=== PATIENT | male | born 1930 | race Caucasian/White ===

== ENCOUNTER 2017-10-09 12:00 | Inpatient (IN) | payer MEDICARE ==
[~2017-10-09] VITALS: Ht 182.9 cm; Wt 56.2 kg
[~2017-10-09 12:00] MED LIST: ACET250T3 PO; ACET325T51 PO; ALBU0.63 IH; AMLO10TA2 PO; BRIM5DRO OP; CICL34.62 TP; DORZ10DR9 OD; GLIP5TAB11 PO; LACT10SO9 PO; LATA2.5D2 OP; MECL12.585 PO; NA P133E35 RC; ZINC220C6 PO
[2017-10-09 12:43] LABS: POTASSIUM 3.6 mmol/L (3.5-5.1)
[2017-10-09 12:44] LABS: INR 1.01 (0.85-1.15); PARTIAL THROMBOPLASTIN TIME 28.1 SEC (26.3-35.5); PROTHROMBIN TIME 10.6 SEC (9.6-11.6)
[2017-10-09 13:01] LABS: ALBUMIN 2.9 g/dL (3.5-5.0); BILIRUBIN,TOTAL 0.3 mg/dL (0.2-1.0); CREATINE KINASE MB 0.5 ng/mL (0.5-3.6); TOTAL PROTEIN, SERUM 6.9 g/dL (6.0-8.3)
[2017-10-09 13:40] LABS: EOSINOPHILS % (AUTO) 1.9 % (0.0-8.0); HEMATOCRIT 31.9 % (42-54); LYMPHOCYTES % (AUTO) 74.8 % (21.0-51.0); MEAN CORPUSCULAR HEMOGLOBIN 25.2 pg (27.0-33.0); MEAN CORPUSCULAR VOLUME 76.4 fL (79-99); MONOCYTES % (AUTO) 2.3 % (3.0-13.0); NUCLEATED RED BLOOD CELLS 0.1 % (0.0-0.19); PLATELET COUNT (AUTO) 288 K/uL (130-400); RED BLOOD CELL COUNT(AUTO) 4.17 MIL/uL (4.50-6.20); RED CELL DISTRIBUTION WIDTH 16.8 % (11.0-15.5); WHITE BLOOD COUNT (AUTO) 26.8 K/uL (4.8-10.8)
[2017-10-09 13:46] LABS: APPEARANCE,URINE Clear (CLEAR); BILIRUBIN,URINE Negative (NEGATIVE); COLOR,URINE Yellow (YELLOW); GLUCOSE, URINE (UA) Negative (NEGATIVE); KETONES,URINE Negative (NEGATIVE); LEUKOCYTE ESTERASE ,URINE Negative (NEGATIVE); NITRATE,URINE Negative (NEGATIVE); OCCULT BLOOD,URINE Negative (NEGATIVE); PROTEIN,URINE POS 1+ (NEGATIVE); UROBILINOGEN,URINE 0.2 mg/dL (0.2-1.0)
[2017-10-09 13:58] LABS: BACTERIA,URINE Rare /HPF (None Seen); SQUAMOUS EPITHELIAL CELL,UR Rare /HPF (0-2); WBC,URINE 0-1 /HPF (0-1)
[2017-10-09 14:06] LABS: BLASTS, MANUAL % 1 (0-0); EOSINOPHILS % (MANUAL) 3 % (1-6); LYMPHOCYTES % (MANUAL) 62 % (22-44); MAN.DIFF COMMENT-IMPRESSION MANUAL DIFFERENTIAL; MONOCYTES % (MANUAL) 7 % (2-9); REACTIVE LYMPHOCYTES 13 % (0-0); SEGMENTED NEUTROPHILS % 14 % (40-70)
[2017-10-09 14:07] LABS: PLATELET MORPHOLOGY COMMENT ADEQUATE
[2017-10-09] MEDS ORDERED: CEFTRIAXONE SODIUM 1 GM ONE (15:11)
[2017-10-09] MEDS ORDERED: SODIUM CHLORIDE 0.9% 1000ML 1,000 ML IV ONE (17:14)
[2017-10-09] MEDS ORDERED: MORPHINE SULFATE 4 MG/1ML SYG IVP PRN (19:45)
[2017-10-09] MEDS ORDERED: ONDANSETRON HCL 4 MG/2 ML VIAL IVP PRN (19:45)
[2017-10-09] MEDS ORDERED: GUAIFENESIN-DM 200/20 MG 10 ML PO PRN (19:45)
[2017-10-09] MEDS ORDERED: DiphenhydrAMINE HCL 50 MG/ML VIAL IVP PRN (19:45)
[2017-10-09] MEDS: SODIUM CHLORIDE 0.9% 1000ML 1,000 ML IV SCH (19:45)
[2017-10-09] MEDS ORDERED: POTASSIUM CHLORIDE 10% ELIXIR 20 MEQ/15 ML UDCUP PO PRN (19:45)
[2017-10-09] MEDS ORDERED: MAG HYDROX/AL HYDROX/SIMETH ES 30 ML SUSP UDCUP PO PRN (19:45)
[2017-10-09] MEDS ORDERED: ZOLPIDEM TARTRATE 5 MG TAB PO PRN (19:45)
[2017-10-09] MEDS ORDERED: LACTULOSE 20 GM/30 ML UDCUP PO PRN (19:45)
[2017-10-09] MEDS ORDERED: NITROGLYCERIN 0.4 MG SL TAB SL PRN (19:45)
[2017-10-09] MEDS ORDERED: ACETAMINOPHEN 325 MG TAB PO PRN ×2 (19:45)
[2017-10-09] MEDS ORDERED: DIPHENHYDRAMINE HCL 25 MG CAPSULE PO PRN (19:45)
[2017-10-09] MEDS: LEVOFLOXACIN 500 MG/D5W 100 ML 100 ML IV SCH (20:00)
[2017-10-09] MEDS ORDERED: LEVOFLOXACIN 500 MG/D5W 100 ML 100 ML ONE (20:11)
[2017-10-09 21:00] VITALS: BP 128/88
[2017-10-09] MEDS: IPRATROPIUM/ALBUTEROL SULFATE 3 ML SOLUTION IH SCH (21:32)
[2017-10-09] MEDS: CLONIDINE HCL 0.1 MG TABLET PO PRN (23:38)
[2017-10-09] MEDS: ZOSYN 3.375GM+NS 50ML 50 ML IV SCH (23:59)
[2017-10-10 00:09] VITALS: BP 168/103
[2017-10-10] MEDS: IPRATROPIUM/ALBUTEROL SULFATE 3 ML SOLUTION IH SCH ×6 (02:46→21:25)
[2017-10-10 04:05] VITALS: BP 167/85
[2017-10-10 05:45] LABS: HEMATOCRIT 33.9 % (42-54); MEAN CORPUSCULAR HEMOGLOBIN 25.2 pg (27.0-33.0); MEAN CORPUSCULAR HGB CONC 32.9 g/dL (32.0-36.0); MEAN CORPUSCULAR VOLUME 76.7 fL (79-99); PLATELET COUNT (AUTO) 287 K/uL (130-400); RED BLOOD CELL COUNT(AUTO) 4.41 MIL/uL (4.50-6.20); RED CELL DISTRIBUTION WIDTH 16.5 % (11.0-15.5); WHITE BLOOD COUNT (AUTO) 23.7 K/uL (4.8-10.8)
[2017-10-10 06:03] LABS: POTASSIUM 3.5 mmol/L (3.5-5.1); THYROID STIMULATING HORMONE 5.41 uIU/mL (0.36-3.74)
[2017-10-10] MEDS: ZOSYN 3.375GM+NS 50ML 50 ML IV SCH ×3 (06:16→22:14)
[2017-10-10] MEDS: SODIUM CHLORIDE 0.9% 1000ML 1,000 ML IV SCH (06:19)
[2017-10-10 07:00] VITALS: BP 188/95
[2017-10-10] MEDS ORDERED: DOCUSATE SODIUM 100 MG CAP PO PRN (09:00)
[2017-10-10] MEDS ORDERED: DONE10TA8 PO (09:02)
[2017-10-10] MEDS ORDERED: TRAZ-185 PO (09:02)
[2017-10-10] MEDS ORDERED: CALC-866 PO (09:02)
[2017-10-10] MEDS ORDERED: MIRT7.5T11 PO (09:02)
[2017-10-10 11:41] VITALS: BP 141/87
[2017-10-10 15:00] VITALS: BP 147/78
[2017-10-10 20:20] VITALS: BP 163/93
[2017-10-10] MEDS: LEVOFLOXACIN 500 MG/D5W 100 ML 100 ML IV SCH (21:00)
[2017-10-11 00:29] VITALS: BP 150/83
[2017-10-11] MEDS: IPRATROPIUM/ALBUTEROL SULFATE 3 ML SOLUTION IH SCH ×6 (02:14→22:00)
[2017-10-11 04:23] VITALS: BP 163/94
[2017-10-11 05:40] LABS: HEMATOCRIT 35.7 % (42-54); MEAN CORPUSCULAR HEMOGLOBIN 24.6 pg (27.0-33.0); MEAN CORPUSCULAR HGB CONC 32.1 g/dL (32.0-36.0); MEAN CORPUSCULAR VOLUME 76.7 fL (79-99); PLATELET COUNT (AUTO) 340 K/uL (130-400); RED BLOOD CELL COUNT(AUTO) 4.66 MIL/uL (4.50-6.20); RED CELL DISTRIBUTION WIDTH 17.2 % (11.0-15.5); WHITE BLOOD COUNT (AUTO) 26.7 K/uL (4.8-10.8)
[2017-10-11] MEDS: ZOSYN 3.375GM+NS 50ML 50 ML IV SCH ×3 (05:48→23:19)
[2017-10-11 05:50] LABS: CREATININE 1.2 mg/dL (0.5-1.5); POTASSIUM 3.8 mmol/L (3.5-5.1)
[2017-10-11] MEDS: SODIUM CHLORIDE 0.9% 1000ML 1,000 ML IV SCH (05:54)
[2017-10-11 08:00] VITALS: BP 162/115
[2017-10-11 12:00] VITALS: BP 150/97
[2017-10-11 16:00] VITALS: BP 128/109
[2017-10-11] MEDS ORDERED: LABETALOL 20 MG/4 ML DISP.SYRIN IV PRN (17:15)
[2017-10-11] MEDS ORDERED: ISOVUE-370 50ML VIAL IV ONE (17:35)
[2017-10-11] MEDS ORDERED: LORAZEPAM 2 MG/ML 1 ML VIAL IVP PRN (19:30)
[2017-10-11] MEDS: LABETALOL HCL 5 MG/ML 20ML VIAL IV PRN (20:24)
[2017-10-11 20:28] VITALS: BP 159/91
[2017-10-11] MEDS: LEVOFLOXACIN 500 MG/D5W 100 ML 100 ML IV SCH (20:55)
[2017-10-12 00:09] VITALS: BP 149/100
[2017-10-12] MEDS: LABETALOL HCL 5 MG/ML 20ML VIAL IV PRN ×2 (00:41→06:07)
[2017-10-12 04:25] VITALS: BP 199/88
[2017-10-12 05:25] LABS: CREATININE 1.2 mg/dL (0.5-1.5); POTASSIUM 3.8 mmol/L (3.5-5.1)
[2017-10-12 05:34] LABS: HEMATOCRIT 33.6 % (42-54); MEAN CORPUSCULAR HEMOGLOBIN 25.4 pg (27.0-33.0); MEAN CORPUSCULAR HGB CONC 32.8 g/dL (32.0-36.0); MEAN CORPUSCULAR VOLUME 77.3 fL (79-99); PLATELET COUNT (AUTO) 313 K/uL (130-400); RED BLOOD CELL COUNT(AUTO) 4.35 MIL/uL (4.50-6.20); RED CELL DISTRIBUTION WIDTH 17.6 % (11.0-15.5); WHITE BLOOD COUNT (AUTO) 22.8 K/uL (4.8-10.8)
[2017-10-12] MEDS: IPRATROPIUM/ALBUTEROL SULFATE 3 ML SOLUTION IH SCH ×2 (06:00→06:12)
[2017-10-12] MEDS: ZOSYN 3.375GM+NS 50ML 50 ML IV SCH ×3 (06:02→20:21)
[2017-10-12] MEDS: LEVOTHYROXINE 50 MCG TABLET PO SCH ×2 (06:03→06:30)
[2017-10-12] MEDS: SODIUM CHLORIDE 0.9% 1000ML 1,000 ML IV SCH (07:45)
[2017-10-12 08:00] VITALS: BP 179/90
[2017-10-12] MEDS ORDERED: MECLIZINE HCL 12.5 MG TABLET PO PRN (08:15)
[2017-10-12] MEDS ORDERED: ACETAMINOPHEN 325 MG TAB PO PRN (08:15)
[2017-10-12] MEDS ORDERED: ALBUTEROL SULFATE 0.042% 1.25 MG/3 ML INH IH PRN (08:15)
[2017-10-12] MEDS ORDERED: LACTULOSE 20 GM/30 ML UDCUP PO PRN (08:15)
[2017-10-12] MEDS: CHOLECALCIFEROL 5000 UNIT PO SCH (09:00)
[2017-10-12] MEDS: TIMOLOL OP SCH ×3 (09:00→20:36)
[2017-10-12] MEDS ORDERED: DORZOLAMIDE HCL 2% 10ML DROPS OD SCH (09:00)
[2017-10-12] MEDS: BRIMONIDINE TARTRATE OP SCH ×3 (09:00→20:36)
[2017-10-12] MEDS: METOPROLOL TARTRATE 50 MG TAB PO SCH ×2 (10:00→20:25)
[2017-10-12] MEDS: HYDRALAZINE HCL 25 MG TABLET PO SCH ×2 (10:07→20:25)
[2017-10-12] MEDS: AMLODIPINE BESYLATE 5 MG TAB PO SCH (10:08)
[2017-10-12] MEDS: ENOXAPARIN SODIUM 40 MG/0.4 ML SYRINGE SQ SCH (10:08)
[2017-10-12 11:00] VITALS: BP 181/74
[2017-10-12] MEDS: DORZOLAMIDE HCL 2% 10ML DROPS OD SCH ×2 (14:00→20:36)
[2017-10-12 17:44] VITALS: BP 170/101
[2017-10-12] MEDS: LEVOFLOXACIN 500 MG/D5W 100 ML 100 ML IV SCH (20:21)
[2017-10-12] MEDS: TRAZODONE HCL 50 MG TAB PO SCH (20:25)
[2017-10-12] MEDS: DONEPEZIL HCL 5 MG TAB PO SCH (20:25)
[2017-10-12] MEDS: MIRTAZAPINE 15 MG TABLET PO SCH (20:25)
[2017-10-12] MEDS: LATANOPROST 2.5 ML DROPS OP SCH (20:36)
[2017-10-12 20:53] VITALS: BP 156/68
[2017-10-13] VITALS (7 sets, daily range): BP systolic 140–194; BP diastolic 72–104
[2017-10-13 04:33] LABS: HEMATOCRIT 33.3 % (42-54); MEAN CORPUSCULAR HEMOGLOBIN 24.6 pg (27.0-33.0); MEAN CORPUSCULAR VOLUME 76.8 fL (79-99); NUCLEATED RED BLOOD CELLS 0.1 % (0.0-0.19); PLATELET COUNT (AUTO) 295 K/uL (130-400); RED BLOOD CELL COUNT(AUTO) 4.33 MIL/uL (4.50-6.20); RED CELL DISTRIBUTION WIDTH 17.4 % (11.0-15.5); WHITE BLOOD COUNT (AUTO) 24.4 K/uL (4.8-10.8)
[2017-10-13 04:36] LABS: POTASSIUM 2.9 mmol/L (3.5-5.1)
[2017-10-13] MEDS: CLONIDINE HCL 0.1 MG TABLET PO PRN (04:39)
[2017-10-13] MEDS: POTASSIUM CHLORIDE 20MEQ/100ML 100 ML IV PRN (04:39)
[2017-10-13] MEDS: ZOSYN 3.375GM+NS 50ML 50 ML IV SCH ×3 (04:40→20:23)
[2017-10-13] MEDS: SODIUM CHLORIDE 0.9% 1000ML 1,000 ML IV SCH (04:40)
[2017-10-13] MEDS: LEVOTHYROXINE 50 MCG TABLET PO SCH (04:40)
[2017-10-13 04:54] LABS: LYMPHOCYTES % (MANUAL) 65 % (22-44); MAN.DIFF COMMENT-IMPRESSION MANUAL DIFFERENTIAL; MONOCYTES % (MANUAL) 6 % (2-9); PLATELET MORPHOLOGY COMMENT ADEQUATE; SEGMENTED NEUTROPHILS % 29 % (40-70)
[2017-10-13] MEDS: IPRATROPIUM/ALBUTEROL SULFATE 3 ML SOLUTION IH SCH (06:00)
[2017-10-13] MEDS: HYDRALAZINE HCL 25 MG TABLET PO SCH ×2 (08:15→10:24)
[2017-10-13] MEDS: TIMOLOL OP SCH ×3 (09:00→19:58)
[2017-10-13] MEDS: BRIMONIDINE TARTRATE OP SCH ×3 (09:00→19:58)
[2017-10-13] MEDS: CHOLECALCIFEROL 5000 UNIT PO SCH (09:00)
[2017-10-13] MEDS: AMLODIPINE BESYLATE 5 MG TAB PO SCH (10:24)
[2017-10-13] MEDS: METOPROLOL TARTRATE 50 MG TAB PO SCH ×2 (10:25→19:51)
[2017-10-13] MEDS: POTASSIUM CHLORIDE 20 MEQ ERTAB PO PRN ×4 (10:25→17:54)
[2017-10-13] MEDS: SERTRALINE HCL 50 MG TABLET PO SCH (10:26)
[2017-10-13] MEDS: ENOXAPARIN SODIUM 40 MG/0.4 ML SYRINGE SQ SCH (10:28)
[2017-10-13] MEDS: DORZOLAMIDE HCL 2% 10ML DROPS OD SCH ×3 (10:29→19:57)
[2017-10-13] MEDS ORDERED: LABETALOL HCL 5 MG/ML 20ML VIAL IV PRN (10:40)
[2017-10-13] MEDS ORDERED: METOPROLOL TARTRATE 1 MG/ML 5ML VIAL IV PRN (13:15)
[2017-10-13] MEDS: DONEPEZIL HCL 5 MG TAB PO SCH (19:51)
[2017-10-13] MEDS: LEVOFLOXACIN 500 MG/D5W 100 ML 100 ML IV SCH (19:52)
[2017-10-13] MEDS: TRAZODONE HCL 50 MG TAB PO SCH (19:52)
[2017-10-13] MEDS: MIRTAZAPINE 15 MG TABLET PO SCH (19:52)
[2017-10-13] MEDS: LATANOPROST 2.5 ML DROPS OP SCH (21:00)
[2017-10-14] VITALS (7 sets, daily range): BP systolic 132–170; BP diastolic 63–95
[2017-10-14] MEDS: HYDRALAZINE HCL 25 MG TABLET PO SCH ×4 (00:37→21:12)
[2017-10-14] MEDS: SODIUM CHLORIDE 0.9% 1000ML 1,000 ML IV SCH ×2 (00:37→22:47)
[2017-10-14 05:28] LABS: CREATININE 1.1 mg/dL (0.5-1.5); POTASSIUM 3.5 mmol/L (3.5-5.1)
[2017-10-14] MEDS: ZOSYN 3.375GM+NS 50ML 50 ML IV SCH (06:00)
[2017-10-14] MEDS: LEVOTHYROXINE 50 MCG TABLET PO SCH (06:00)
[2017-10-14] MEDS: CHOLECALCIFEROL 5000 UNIT PO SCH (09:00)
[2017-10-14] MEDS: TIMOLOL OP SCH ×3 (09:00→21:00)
[2017-10-14] MEDS: BRIMONIDINE TARTRATE OP SCH ×3 (09:00→21:00)
[2017-10-14] MEDS: ENOXAPARIN SODIUM 40 MG/0.4 ML SYRINGE SQ SCH (09:43)
[2017-10-14] MEDS: SERTRALINE HCL 50 MG TABLET PO SCH (09:43)
[2017-10-14] MEDS: AMLODIPINE BESYLATE 5 MG TAB PO SCH (09:44)
[2017-10-14] MEDS: METOPROLOL TARTRATE 50 MG TAB PO SCH ×2 (09:44→21:14)
[2017-10-14] MEDS: DORZOLAMIDE HCL 2% 10ML DROPS OD SCH ×3 (09:45→22:52)
[2017-10-14] MEDS: LATANOPROST 2.5 ML DROPS OP SCH (21:00)
[2017-10-14] MEDS: DONEPEZIL HCL 5 MG TAB PO SCH (21:12)
[2017-10-14] MEDS: MIRTAZAPINE 15 MG TABLET PO SCH (21:12)
[2017-10-14] MEDS: TRAZODONE HCL 50 MG TAB PO SCH (21:12)
[2017-10-15] VITALS (7 sets, daily range): BP systolic 120–165; BP diastolic 60–88
[2017-10-15] MEDS: LEVOTHYROXINE 50 MCG TABLET PO SCH (06:23)
[2017-10-15] MEDS: METOPROLOL TARTRATE 50 MG TAB PO SCH ×2 (08:28→21:00)
[2017-10-15] MEDS: SERTRALINE HCL 50 MG TABLET PO SCH (08:28)
[2017-10-15] MEDS: HYDRALAZINE HCL 25 MG TABLET PO SCH ×3 (08:36→22:33)
[2017-10-15] MEDS: AMLODIPINE BESYLATE 5 MG TAB PO SCH (08:37)
[2017-10-15] MEDS: ENOXAPARIN SODIUM 40 MG/0.4 ML SYRINGE SQ SCH (08:44)
[2017-10-15] MEDS: CHOLECALCIFEROL 5000 UNIT PO SCH (08:56)
[2017-10-15] MEDS: BRIMONIDINE TARTRATE OP SCH ×3 (08:56→21:00)
[2017-10-15] MEDS: TIMOLOL OP SCH ×3 (08:56→21:00)
[2017-10-15] MEDS: DORZOLAMIDE HCL 2% 10ML DROPS OD SCH ×3 (09:03→20:13)
[2017-10-15] MEDS: SODIUM CHLORIDE 0.9% 1000ML 1,000 ML IV SCH ×2 (15:45→20:11)
[2017-10-15] MEDS: LATANOPROST 2.5 ML DROPS OP SCH (21:00)
[2017-10-15] MEDS: TRAZODONE HCL 50 MG TAB PO SCH (22:31)
[2017-10-15] MEDS: MIRTAZAPINE 15 MG TABLET PO SCH (22:32)
[2017-10-15] MEDS: DONEPEZIL HCL 5 MG TAB PO SCH (22:40)
[2017-10-16] VITALS (18 sets, daily range): BP systolic 130–186; BP diastolic 56–93
[2017-10-16] MEDS: LEVOTHYROXINE 50 MCG TABLET PO SCH (04:21)
[2017-10-16 05:58] LABS: HEMATOCRIT 30.4 % (42-54); MEAN CORPUSCULAR HEMOGLOBIN 25.7 pg (27.0-33.0); MEAN CORPUSCULAR HGB CONC 33.4 g/dL (32.0-36.0); MEAN CORPUSCULAR VOLUME 77.1 fL (79-99); PLATELET COUNT (AUTO) 262 K/uL (130-400); RED BLOOD CELL COUNT(AUTO) 3.95 MIL/uL (4.50-6.20); RED CELL DISTRIBUTION WIDTH 17.8 % (11.0-15.5); WHITE BLOOD COUNT (AUTO) 22.8 K/uL (4.8-10.8)
[2017-10-16 06:07] LABS: CREATININE 0.9 mg/dL (0.5-1.5)
[2017-10-16] MEDS: POTASSIUM CHLORIDE 20MEQ/100ML 100 ML IV PRN (06:35)
[2017-10-16] MEDS ORDERED: PROPOFOL 10 MG/ML 20ML VIAL IV ONE ×2 (07:46→07:47)
[2017-10-16] MEDS ORDERED: LIDOCAINE HCL 2% 20ML ONE (07:47)
[2017-10-16] MEDS ORDERED: GLYCOPYRROLATE 0.2 MG/ML 5 ML VIAL ONE (07:47)
[2017-10-16] MEDS ORDERED: SUCCINYLCHOLINE CHLORIDE 20 MG/ML 10 ML VIAL ONE (07:47)
[2017-10-16] MEDS: CHOLECALCIFEROL 5000 UNIT PO SCH (09:00)
[2017-10-16] MEDS: TIMOLOL OP SCH ×3 (09:00→21:00)
[2017-10-16] MEDS: METOPROLOL TARTRATE 50 MG TAB PO SCH ×2 (09:00→10:02)
[2017-10-16] MEDS: ENOXAPARIN SODIUM 40 MG/0.4 ML SYRINGE SQ SCH (09:00)
[2017-10-16] MEDS: SERTRALINE HCL 50 MG TABLET PO SCH (09:00)
[2017-10-16] MEDS: DORZOLAMIDE HCL 2% 10ML DROPS OD SCH ×3 (09:00→22:01)
[2017-10-16] MEDS: BRIMONIDINE TARTRATE OP SCH ×3 (09:00→21:00)
[2017-10-16] MEDS: AMLODIPINE BESYLATE 5 MG TAB PO SCH (10:02)
[2017-10-16] MEDS: HYDRALAZINE HCL 25 MG TABLET PO SCH ×2 (10:02→22:06)
[2017-10-16] MEDS: SODIUM CHLORIDE 0.9% 1000ML 1,000 ML IV SCH (11:45)
[2017-10-16] MEDS: MIRTAZAPINE 15 MG TABLET PO SCH (21:00)
[2017-10-16] MEDS: TRAZODONE HCL 50 MG TAB PO SCH (21:00)
[2017-10-16] MEDS: LATANOPROST 2.5 ML DROPS OP SCH (22:01)
[2017-10-16] MEDS: DONEPEZIL HCL 5 MG TAB PO SCH (22:06)
[2017-10-17] VITALS: BP 171/70
[2017-10-17 04:01] VITALS: BP 153/90
[2017-10-17] MEDS: LEVOTHYROXINE 50 MCG TABLET PO SCH (05:24)
[2017-10-17] MEDS: CLONIDINE HCL 0.1 MG TABLET PO PRN (05:29)
[2017-10-17 05:31] LABS: CREATININE 0.9 mg/dL (0.5-1.5); POTASSIUM 3.3 mmol/L (3.5-5.1)
[2017-10-17] MEDS: POTASSIUM CHLORIDE 20MEQ/100ML 100 ML IV PRN ×2 (06:08→13:15)
[2017-10-17] MEDS: LIDOCAINE HCL-MPF 1% 2ML VIAL IJ PRN ×2 (06:16→13:14)
[2017-10-17 08:00] VITALS: BP 170/73
[2017-10-17] MEDS: BRIMONIDINE TARTRATE OP SCH ×3 (09:00→21:00)
[2017-10-17] MEDS: CHOLECALCIFEROL 5000 UNIT PO SCH (09:00)
[2017-10-17] MEDS: METOPROLOL TARTRATE 50 MG TAB PO SCH (09:00)
[2017-10-17] MEDS: TIMOLOL OP SCH ×3 (09:00→21:00)
[2017-10-17] MEDS: SERTRALINE HCL 50 MG TABLET PO SCH (10:11)
[2017-10-17] MEDS: AMLODIPINE BESYLATE 5 MG TAB PO SCH (10:11)
[2017-10-17] MEDS: HYDRALAZINE HCL 25 MG TABLET PO SCH ×2 (10:11→22:57)
[2017-10-17] MEDS: ENOXAPARIN SODIUM 40 MG/0.4 ML SYRINGE SQ SCH (10:12)
[2017-10-17] MEDS: DORZOLAMIDE HCL 2% 10ML DROPS OD SCH ×3 (10:21→23:26)
[2017-10-17 12:00] VITALS: BP 182/72
[2017-10-17] MEDS: SODIUM CHLORIDE 0.9% 1000ML 1,000 ML IV SCH (13:13)
[2017-10-17 16:00] VITALS: BP 167/75
[2017-10-17 20:06] VITALS: BP 161/72
[2017-10-17] MEDS: MIRTAZAPINE 15 MG TABLET PO SCH (21:00)
[2017-10-17] MEDS: TRAZODONE HCL 50 MG TAB PO SCH (22:57)
[2017-10-17] MEDS: DONEPEZIL HCL 5 MG TAB PO SCH (22:57)
[2017-10-17] MEDS: LATANOPROST 2.5 ML DROPS OP SCH (23:26)
[2017-10-18 00:38] VITALS: BP 150/81
[2017-10-18 03:25] VITALS: BP 149/63
[2017-10-18] MEDS: LEVOTHYROXINE 50 MCG TABLET PO SCH (06:30)
[2017-10-18 08:00] VITALS: BP 149/74
[2017-10-18] MEDS: BRIMONIDINE TARTRATE OP SCH (09:00)
[2017-10-18] MEDS: CHOLECALCIFEROL 5000 UNIT PO SCH (09:00)
[2017-10-18] MEDS: TIMOLOL OP SCH (09:00)
[2017-10-18] MEDS: SERTRALINE HCL 50 MG TABLET PO SCH (10:01)
[2017-10-18] MEDS: AMLODIPINE BESYLATE 5 MG TAB PO SCH (10:02)
[2017-10-18] MEDS: HYDRALAZINE HCL 25 MG TABLET PO SCH (10:02)
[2017-10-18] MEDS: METOPROLOL TARTRATE 50 MG TAB PO SCH (10:02)
[2017-10-18] MEDS: ENOXAPARIN SODIUM 40 MG/0.4 ML SYRINGE SQ SCH (10:06)
[2017-10-18] MEDS: DORZOLAMIDE HCL 2% 10ML DROPS OD SCH (10:06)
[2017-10-18 11:00] VITALS: BP 148/73
[2017-10-18 16:00] VITALS: BP 142/77
== END 2017-10-18 17:40 | DRG 392 ==
LOC: EDH 12:00 → EDHIP 17:15 → OBSVTOIN 17:15 → 3AH 20:14
PROVIDERS: ADMIT Family Medicine; ATTEND Family Medicine
PROC: 0DH63UZ Insertion of Feeding Device into Stomach, Percutaneous Approach (ICD-10-PCS; principal; 2017-10-16)
DX: R13.12 Dysphagia, oropharyngeal phase (principal); C91.10 Chronic lymphocytic leukemia of B-cell type not having achieved remission; I47.1 Supraventricular tachycardia; R64 Cachexia; R41.82 Altered mental status, unspecified; F03.90 Unspecified dementia, unspecified severity, without behavioral disturbance, psychotic disturbance, mood disturbance, and anxiety; N18.9 Chronic kidney disease, unspecified; E11.22 Type 2 diabetes mellitus with diabetic chronic kidney disease; I12.9 Hypertensive chronic kidney disease with stage 1 through stage 4 chronic kidney disease, or unspecified chronic kidney disease; F32.9 Major depressive disorder, single episode, unspecified; I48.91 Unspecified atrial fibrillation; R33.9 Retention of urine, unspecified; R10.9 Unspecified abdominal pain; D72.829 Elevated white blood cell count, unspecified; R62.7 Adult failure to thrive; R50.9 Fever, unspecified; H26.9 Unspecified cataract; R45.1 Restlessness and agitation; E78.5 Hyperlipidemia, unspecified; Z87.891 Personal history of nicotine dependence; Z28.21 Immunization not carried out because of patient refusal
CPT/HCPCS: 36415; 70470; 71045; 74176; 74230; 80048; 80053; 81001; 82140; 82550; 82553; 82948; 84132; 84443; 84484; 85025; 85027; 85610; 85730; 87040; 92526; 92610; 92611; 93005; 93306; 94640; 94664; 99291; A4344; J0330; J0696; J1650; J1956; J2060; J2543; J2704; J3480; J3490; J7030; Q9967